=== PATIENT | female | born 1975 | race Two or more races ===

== ENCOUNTER → 2018-01-31 | Outpatient (CLI) | payer MEDICAID ==
[~2018-01-31] VITALS: Ht 167.6 cm; Wt 111.1 kg
== END | disposition home or self-care (01) ==
LOC: Rad HDHVI 09:18
PROVIDERS: ATTEND Internal Medicine
DX: I10 Essential (primary) hypertension (principal); D25.9 Leiomyoma of uterus, unspecified; R00.2 Palpitations; R63.8 Other symptoms and signs concerning food and fluid intake; R07.89 Other chest pain
CPT/HCPCS: 78452; 93017; 96374; A9500

== ENCOUNTER → 2018-02-06 | Outpatient (CLI) | payer MEDICAID | END | disposition home or self-care (01) | LOC: Rad HDHVI 09:50 | PROVIDERS: ATTEND Internal Medicine | DX: Z01.818 Encounter for other preprocedural examination (principal); I10 Essential (primary) hypertension; E78.5 Hyperlipidemia, unspecified; R00.2 Palpitations | CPT/HCPCS: 93306 ==